=== PATIENT | female | born 1990 | race African-American/Black ===

== ENCOUNTER 2020-11-30 11:30 | Inpatient (IN) | payer OTHER ==
[2020-11-30 12:35] LABS: BASO % 0.2 % (0-2.0); EOS % 0.3 % (0-4.5); HEMATOCRIT 35.3 % (32.4-45.2); HEMOGLOBIN 11.9 GM/dL (10.7-15.3); LYMPH % 15.8 % (8-40); MCHC 33.8 g/dl (32.0-36.0); MEAN CELL VOLUME 94.7 fl (80-96); MEAN PLT VOLUME 8.9 fl (7.5-11.1); MONO % 9.6 % (3.8-10.2); NEUT % 74.1 % (42.8-82.8); PLATELET COUNT 199 10^3/uL (134-434); RBC 3.72 M/mm3 (3.60-5.2); RDW 14.3 % (11.6-15.6); WHITE BLOOD COUNT 9.6 K/mm3 (4.0-10.0)
[2020-11-30 12:36] LABS: RETICULOCYTES 2.38 % (0.5-1.5)
[2020-11-30 12:42] LABS: INR 0.92 (0.83-1.09); PROTHROMBIN TIME (PATIENT) 11.4 SEC (9.7-13.0)
[2020-11-30 12:45] LABS: ACTIVATED PTT 33.8 SECONDS (25.2-36.5)
[2020-11-30 12:55] LABS: BLOOD UREA NITROGEN 6.4 mg/dL (7-18); CALCIUM 8.6 mg/dL (8.5-10.1)
[2020-11-30 12:56] LABS: GAMMA GLUTAMYL TRANSPEPTIDASE 9 U/L (5-85)
[2020-11-30 12:58] LABS: SGOT/AST 21 U/L (15-37); URIC ACID 3.6 mg/dL (2.6-7.2)
[2020-11-30 12:59] LABS: CREATININE 0.4 mg/dL (0.55-1.3); SGPT/ALT 26 U/L (13-61)
[2020-11-30] MEDS ORDERED: BUTORPHANOL TARTRATE 1 MG/ML VIAL IVPB ONE (13:01)
[2020-11-30] MEDS ORDERED: PROMETHAZINE HCL 25 MG/1 ML VIAL IVPUSH ONE (13:01)
[2020-11-30] MEDS ORDERED: SODIUM PHOSPHATE/NA BIPHOS 133 ML ENEMA RC ONE (13:05)
[2020-11-30 13:06] LABS: URINE APPEARANCE Clear; URINE BILIRUBIN Negative (NEGATIVE); URINE COLOR Yellow; URINE GLUCOSE (UA) Negative (NEGATIVE); URINE KETONE Negative (NEGATIVE); URINE LEUK ESTERASE Negative (NEGATIVE); URINE NITRITE Negative (NEGATIVE); URINE PROTEIN Negative (NEGATIVE); URINE UROBILINOGEN 0.2 mg/dL (0.2-1.0)
[2020-11-30] MEDS ORDERED: DEXTROSE 5%-LACTATED RINGERS 1,000 ML IV SCH (13:15)
[2020-11-30 13:24] LABS: CREATININE, URINE RANDOM < 13.0 mg/dL (30-150)
[2020-11-30] MEDS ORDERED: DINOPROSTONE 10 MG VAGINAL SUPPOSITORY VG ONE (13:30)
[2020-11-30] MEDS ORDERED: LABETALOL HCL 200 MG TABLET (FP) ONE (13:53)
[2020-11-30] MEDS ORDERED: LABETALOL HCL 200 MG TABLET (FP) PO ONE (13:54)
[2020-11-30 14:44] VITALS: BMI 25.2
[2020-12-01] MEDS: LABETALOL HCL 200 MG TABLET (FP) PO PRN ×5 (00:05→22:33)
[2020-12-01] MEDS ORDERED: LABETALOL HCL 200 MG TABLET (FP) ONE ×3 (00:06→12:00)
[2020-12-01] MEDS ORDERED: OXYTOCIN 30 UNITS in 0.9% NS 30 UNIT/500 ML INFUS.BAG IVPB SCH ×2 (02:30→03:30)
[2020-12-01] MEDS ORDERED: OXYTOCIN 30 UNITS in 0.9% NS 30 UNIT/500 ML INFUS.BAG IVPB ONE (02:41)
[2020-12-01] MEDS ORDERED: BUTORPHANOL TARTRATE 2 MG/ML VIAL IVPB ONE (10:30)
[2020-12-01] MEDS ORDERED: PROMETHAZINE HCL 25 MG/1 ML VIAL IVPB ONE (10:30)
[2020-12-01] MEDS ORDERED: PROMETHAZINE HCL 25 MG/1 ML VIAL ONE (10:37)
[2020-12-01] MEDS ORDERED: BUTORPHANOL TARTRATE 2 MG/ML VIAL ONE (10:37)
[2020-12-01] MEDS ORDERED: OXYTOCIN 20 UNITS in 0.9% NS 20 UNIT/1,000 ML INFUS.BAG IV ONE (12:44)
[2020-12-01] MEDS ORDERED: BISACODYL 10 MG SUPP.RECT RC PRN (13:34)
[2020-12-01] MEDS ORDERED: IBUPROFEN 600 MG TABLET (FP) PO PRN (13:34)
[2020-12-01] MEDS ORDERED: BENZOCAINE 20% 57 GM BOTTLE TP PRN (13:34)
[2020-12-01] MEDS ORDERED: oxyCODONE HCL 5 MG TABLET PO PRN (13:34)
[2020-12-01] MEDS ORDERED: BENZOCAINE 28 GM HEMORRHOIDAL OINTMENT TP PRN (13:34)
[2020-12-01] MEDS ORDERED: METHYLERGONOVINE MALEATE 0.2 MG/1 ML AMP IM PRN (13:34)
[2020-12-01] MEDS ORDERED: WITCH HAZEL 50% (TUCKS) 40 PAD/JAR PAD TP PRN (13:34)
[2020-12-01] MEDS ORDERED: ACETAMINOPHEN 325 MG TABLET (FP) PO PRN (13:34)
[2020-12-01 13:44] LABS: CORD BASE EXCESS -4.3 mmol/L (0-2); CORD HCO3 22.4 mmHg (20-29); CORD PCO2 46.7 mmHg (30-78); CORD pH 7.298 (7.14-7.44)
[2020-12-01] MEDS ORDERED: OXYTOCIN 20 UNITS in 0.9% NS 20 UNIT/1,000 ML INFUS.BAG IV SCH (13:45)
[2020-12-01] MEDS: FERROUS SO4 325 MG TABLET (FP) PO SCH (17:21)
[2020-12-01 17:59] LABS: COCAINE, UR NEGATIVE (NEGATIVE); URINE BARBITURATES NEGATIVE (NEGATIVE)
[2020-12-01 18:00] LABS: METHADONE, UR NEGATIVE (NEGATIVE); OPIATES, URI NEGATIVE (NEGATIVE); PHENCYCLIDINE,URINE NEGATIVE (NEGATIVE); URINE AMPHETAMINES NEGATIVE (NEGATIVE); URINE BENZODIAZEPINES NEGATIVE (NEGATIVE)
[2020-12-01] MEDS: BACITRACIN 15 GM TUBE TOPICAL OINTMENT TP SCH (21:06)
[2020-12-02 07:20] LABS: BASO % 0.1 % (0-2.0); EOS % 0.3 % (0-4.5); HEMATOCRIT 28.6 % (32.4-45.2); HEMOGLOBIN 9.7 GM/dL (10.7-15.3); LYMPH % 12.9 % (8-40); MCH 32.4 pg (25.7-33.7); MEAN CELL VOLUME 95.1 fl (80-96); MEAN PLT VOLUME 8.9 fl (7.5-11.1); MONO % 10.2 % (3.8-10.2); NEUT % 76.5 % (42.8-82.8); PLATELET COUNT 183 10^3/uL (134-434); RBC 3.01 M/mm3 (3.60-5.2); RDW 14.6 % (11.6-15.6); WHITE BLOOD COUNT 14.3 K/mm3 (4.0-10.0)
[2020-12-02] MEDS: FERROUS SO4 325 MG TABLET (FP) PO SCH ×2 (09:31→18:57)
[2020-12-02] MEDS: NIFEdipine E.R. 30 MG TABLET PO SCH (09:31)
[2020-12-02] MEDS: PRENATAL VITAMINS W/ FOLIC ACID TABLET (FP) PO SCH (09:31)
[2020-12-02] MEDS: LABETALOL HCL 200 MG TABLET (FP) PO PRN (09:38)
[2020-12-02] MEDS ORDERED: SENNOSIDES/DOCUSATE COMBO (SENNA PLUS) TABLET (UD) PO PRN (22:00)
[2020-12-03] MEDS: BACITRACIN 15 GM TUBE TOPICAL OINTMENT TP SCH ×2 (08:47→09:23)
[2020-12-03 08:50] VITALS: BP 137/83; PULSE 89; TEMP 98
[2020-12-03] MEDS: NIFEdipine E.R. 30 MG TABLET PO SCH (09:23)
[2020-12-03] MEDS: PRENATAL VITAMINS W/ FOLIC ACID TABLET (FP) PO SCH (09:23)
[2020-12-03] MEDS: FERROUS SO4 325 MG TABLET (FP) PO SCH (09:24)
== END 2020-12-03 13:30 | disposition home or self-care (01) | DRG 560 ==
LOC: JLDR 11:30 → J3W 12-01 14:55
PROVIDERS: ADMIT Obstetrics & Gynecology; ATTEND Obstetrics & Gynecology
PROC: 3E0P7VZ Introduction of Hormone into Female Reproductive, Via Natural or Artificial Opening (ICD-10-PCS; 2020-11-30)
PROC: 10E0XZZ Delivery of Products of Conception, External Approach (ICD-10-PCS; principal; 2020-12-01)
DX: O14.03 Mild to moderate pre-eclampsia, third trimester (principal); O13.3 Gestational [pregnancy-induced] hypertension without significant proteinuria, third trimester; O36.5930 Maternal care for other known or suspected poor fetal growth, third trimester, not applicable or unspecified; Z3A.37 37 weeks gestation of pregnancy; Z37.0 Single live birth
CPT/HCPCS: 36415; 36600; 59409; 80048; 80307; 81003; 82570; 82803; 82977; 83010; 84156; 84450; 84460; 84550; 85025; 85032; 85045; 85610; 85730; 86780; 86850; 86900; 86901; C9803; U0003; U0005